=== PATIENT | female | born 1975 | race African-American/Black ===

== ENCOUNTER 2018-03-22 12:53 | Outpatient (CLI) | payer OTHER | END 2018-03-22 20:19 | disposition home or self-care (01) | LOC: MAMMO 12:53 | DX: Z12.31 Encounter for screening mammogram for malignant neoplasm of breast (principal) ==

== ENCOUNTER 2018-06-24 18:25 | Emergency (ER) | payer OTHER ==
[~2018-06-24] VITALS: Ht 157.5 cm; Wt 90.7 kg
[2018-06-24] MEDS ORDERED: METF500T PO (18:38)
[2018-06-24 19:34] LABS: PLATELET COUNT 229 K/uL (152-353)
[2018-06-24 19:44] LABS: POTASSIUM 3.9 mmol/L (3.6-5.2)
[2018-06-24 20:40] VITALS: BP 150/90; TEMP 97.9
== END 2018-06-24 20:43 | disposition home or self-care (01) ==
LOC: ED 18:25
PROVIDERS: Family Medicine
DX: J11.1 Influenza due to unidentified influenza virus with other respiratory manifestations (principal); E11.65 Type 2 diabetes mellitus with hyperglycemia
CPT/HCPCS: 36415; 80053; 85027; 87502; 99283

== ENCOUNTER 2020-03-30 12:54 | Outpatient (CLI) | payer OTHER ==
[~2020-03-30 12:54] MED LIST: METF500T PO
== END 2020-03-30 20:24 | disposition home or self-care (01) ==
LOC: MAMMO 12:54
DX: Z12.31 Encounter for screening mammogram for malignant neoplasm of breast (principal)

== ENCOUNTER 2020-05-29 11:13 | Outpatient (CLI) | payer OTHER | END 2020-05-29 21:10 | disposition home or self-care (01) | LOC: LABW 11:13 | PROVIDERS: ATTEND Nurse Practitioner Family | DX: R80.9 Proteinuria, unspecified (principal) | CPT/HCPCS: 84156 ==

== ENCOUNTER 2020-11-13 10:46 | Outpatient (CLI) | payer OTHER | END 2020-11-13 18:54 | disposition home or self-care (01) | LOC: CT 10:46 | PROVIDERS: ATTEND Nurse Practitioner Primary Care | DX: R51.9 Headache, unspecified (principal) ==

== ENCOUNTER 2020-11-24 09:02 | Outpatient (CLI) | payer OTHER ==
[2020-12-05 10:26] LABS: POTASSIUM 4.1 mmol/L (3.6-5.2)
[2020-12-05 10:28] LABS: PLATELET COUNT 278 K/uL (152-353)
== END 2020-11-24 23:59 | disposition home or self-care (01) ==
LOC: LABW 09:02
PROVIDERS: ATTEND Nurse Practitioner Family
DX: H49.02 Third [oculomotor] nerve palsy, left eye (principal)
CPT/HCPCS: 36415; 80053; 85027; 85652; 86038; 86140; 86430; A9576

== ENCOUNTER 2021-11-01 02:13 | Emergency (ER) | payer OTHER ==
[~2021-11-01] VITALS: Ht 157.5 cm; Wt 85.3 kg
[2021-11-01 03:07] LABS: PLATELET COUNT 278 K/uL (152-353)
[2021-11-01 03:12] LABS: POTASSIUM 4.2 mmol/L (3.6-5.2)
[2021-11-01 04:15] VITALS: BP 121/69; TEMP 98.4
== END 2021-11-01 04:15 | disposition home or self-care (01) ==
LOC: ED 02:13
PROVIDERS: Emergency Medicine
DX: N20.0 Calculus of kidney (principal)
CPT/HCPCS: 36415; 80053; 81000; 85027; 96360; 96374; 96375; 96376; 99284; J1885; J2405

== ENCOUNTER 2023-01-09 12:35 | Outpatient (CLI) | payer OTHER | END 2023-01-09 20:25 | disposition home or self-care (01) | LOC: CT 12:35 | PROVIDERS: ATTEND Nurse Practitioner Family | DX: N20.2 Calculus of kidney with calculus of ureter (principal) ==

== ENCOUNTER 2023-07-04 15:01 | Outpatient (CLI) | payer OTHER | END 2023-07-04 19:29 | disposition home or self-care (01) | LOC: CT 15:01 | PROVIDERS: ATTEND Nurse Practitioner Family | DX: N20.2 Calculus of kidney with calculus of ureter (principal) ==